=== PATIENT | male | born 2005 | race Caucasian/White ===

== ENCOUNTER 2024-04-06 15:02 | Emergency (ER) | payer SELFPAY ==
--- NOTE | ~2024-04-06 | CT_ITS ---
CLINICAL INDICATION: Hematuria COMPARISON: None. TECHNIQUE: Multiple contiguous axial images of the abdomen and pelvis were performed following the ad ministration of with 100 mL Omnipaque-350 intravenous contrast The dose-length product (DLP) was 325.00 mGy-cm. Automated exposure control and iterative reconstruction technique were employed. FINDINGS/OBSERVATIONS: Visualized lower thorax: The bilateral lung bases are clear. The heart is of normal size, without pericardial effusion. Small hiatal hernia is present. Liver: The liver enhances homogeneously and is not enlarged measuring 17 cm in longitudinal dimension Gallbladder and biliary system: The gallbladder is only minimally distended, and otherwise unremarkable. Pancreas: The pancreas enhances homogeneously without ductal dilatation. Spleen: The spleen enhances homogeneously and is not enlarged measuring 10 cm in longitudinal dimension. Kidneys: The bilateral kidneys enhance symmetrically without hydronephrosis or renal calculi. Adrenal glands: Unremarkable. Gastrointestinal tract: Trace fecal stasis. Appendix: The air-filled appendix is of normal caliber (axial series, images 87-105). Vasculature: Unremarkable. No aneurysmal dilatation or significant stenosis. Lymph nodes: No pathologically enlarged or morphologically suspicious lymph nodes within the retroperitoneum or at the root of the mesentery. Pelvic structures: The bladder is distended, with mildly thickened martinez and surrounding inflammatory change findings co nsistent with a cystitis. The prostate gland is not enlarged. Prominence of the seminal vesicles are identified, with surrounding inflammatory change, findings sug gesting seminal vesiculitis which clinical and serologic correlation is needed. Body wall and musculoskeletal: No significant degenerative disease within the lower thoracic or lumbosacral spine. IMPRESSION: Findings suggesting cystitis with associated seminal vesiculitis, as detailed above. No additional abnormalities are appreciated. Reviewed, dictated and finalized at location A[facility] IMPRESSION: Findings suggesting cystitis with associated seminal vesiculitis, as detailed a luana. No additional abnormalities are appreciated.
[2024-04-06 15:15] VITALS: BP 138/65; PULSE 95; RESP 16; TEMP 36.7; O2SAT 99
[2024-04-06 15:37] LABS: Add Urine Microscopic? YES; Appearance Urine Clear (Clear); Bacteria Urine None Seen /hpf; Bilirubin Urine Negative (Negative); Blood Urine 3+ (Negative); Color Urine Yellow (Yellow); Glucose Urine UA Negative (Negative); Ketones Urine Negative (Negative); Leukocyte Esterase Ur 2+ LEU/UL (Negative); Nitrate Urine Negative (Negative); Non Pathogenic Casts 0-2; Protein Urine Negative (Negative); Specific Grav Ur 1.004 (1.001-1.035); Squamous Epithelial Cell Urine None Seen /hpf (Few); Urobilinogen Urine 0.2 mg/dL (<2.0); WBC Urine 21-50 /hpf (0-3)
--- NOTE | 2024-04-06 16:27 | ED.MALEGU ---
HPI - Male Genitourinary General Chief complaint: Urogenital-Male <Jazmín Rueda APRN - Last Filed: 04/06/24 16:45> Stated complaint: blood in my urine <Jazmín Rueda APRN - Last Filed: 04/06/24 16:45> Time Seen by Provider: 04/06/24 16:20 <Jazmín Rueda APRN - Last Filed: 04/06/24 16:45> Focused HPI: Patient is a 19-year-old male presents to the ER with blood in his urine. He reports that he got up to use the restroom last night around 1:00 a.m. patient denies any abdominal discomfort or back pain. He endorses a slight stinging when he will urinates. Patient denies concerns for STDs. He has no pertinent medical history related to this ER visit and has no history urinary tract infections. GENERAL: Well-appearing, well-nourished, and in no acute distress. HEAD: Normocephalic, atraumatic. CHEST: Clear to auscultation. ?No respiratory distress. HEART: Regular rate and rhythm.? NEURO: ?Alert and oriented x3. Patient screened in triage and initial orders placed.? ?Additional care and disposition to be based upon?diagnostic testing and treatment. <Jazmín Rueda APRN - Last Filed: 04/06/24 16:45> Source: patient <Mauricio Wilson PA-C - Last Filed: 04/07/24 01:03> Mode of arrival: ambulatory <Mauricio Wilson PA-C - Last Filed: 04/07/24 01:03> Limitations: no limitations <LISA Bryant Last Filed: 04/07/24 01:03> History of Present Illness HPI Narrative: Agree with triage note above <LISA Bryant Last Filed: 04/07/24 01:03> Related Data Allergies/Adverse reactions: Allergies Allergy/AdvReac Type Severity Reaction Status Date / Time No Known Allergies Allergy Mild Verified 04/06/24 17:27 <Jazmín Rueda APRN - Last Filed: 04/06/24 16:45> Review of Systems Review of Systems: All systems as dictated in HPI <Mauricio Wilson PA-C - Last Filed: 04/07/24 01:03> Exam Narrative: GENERAL: Well-appearing, well-nourished, and in no acute distress. HEAD: Normocephalic, atraumatic. EYES: PERRLA and EOMI. ENT: Nares clear, no rhinorrhea or epistaxis. Mucous membranes moist. Oropharynx without tonsillar hypertrophy exudate or other lesions. NECK: Supple. No adenopathy or masses. CHEST: No respiratory distress. Clear to auscultation. No wheezes rales or rhonchi HEART: Regular rate and rhythm. No murmur heard. Normal peripheral pulses. ABDOMEN: Soft, nontender, nondistended, normal active bowel sounds. MSK: Normal range of motion. No edema. SKIN: Warm, dry, no rash. NEURO: Alert and oriented x4. No focal deficits. PSYCH: Normal mood and affect. <Mauricio Wilson PA-C - Last Filed: 04/07/24 01:03> Course Vital Signs Vital signs: Vital Signs Temperature 98.1 F 04/06/24 15:15 Pulse Rate 95 04/06/24 15:15 Respiratory Rate 16 04/06/24 15:15 Blood Pressure 138/65 04/06/24 15:15 Pulse Oximetry 99 04/06/24 15:15 Oxygen Delivery Room Air 04/06/24 15:15 Temperature 98.1 F 04/06/24 15:15 Pulse Rate 95 04/06/24 15:15 Respiratory Rate 16 04/06/24 15:15 Blood Pressure 138/65 04/06/24 15:15 Pulse Oximetry 99 04/06/24 15:15 Oxygen Delivery Room Air 04/06/24 15:15 <Jazmín Rueda, WINDOWS SYSTEMS ENGINEER - Last Filed: 04/06/24 16:45> Vital Signs Temperature 98.1 F 04/06/24 15:15 Pulse Rate 95 04/06/24 15:15 Respiratory Rate 16 04/06/24 15:15 Blood Pressure 138/65 04/06/24 15:15 Pulse Oximetry 99 04/06/24 15:15 Oxygen Delivery Room Air 04/06/24 15:15 Temperature 98.1 F 04/06/24 15:15 Pulse Rate 95 04/06/24 15:15 Respiratory Rate 16 04/06/24 15:15 Blood Pressure 138/65 04/06/24 15:15 Pulse Oximetry 99 04/06/24 15:15 Oxygen Delivery Room Air 04/06/24 15:15 <Mauricio Wilson PA-C - Last Filed: 04/07/24 01:03> MDM - Male Genitourinary MDM Narrative Medical decision making narrative: This is a 19-year-old male who presents to the ED for chief complaint of dysuria and hematuria. Vitals are normal.. Exam is benign overall. exam deferred. No abdominal pain or testicular pain or swelling reported. Lab work shows elevated white count 14.1. CMP shows elevated bilirubin. Urinalysis remarkable for 3+ blood, 2+ leuks, 11-20 RBCs, 21-50 wbc's. STD labs are negative. CT abdomen pelvis with IV contrast: IMPRESSION: Findings suggesting cystitis with associated seminal vesiculitis, as detailed above. No additional abnormalities are appreciated. Discussed the above findings with the patient. We will start on ciprofloxacin for urinary tract infection. Urology referral given as well. Patient will be discharged in stable condition. Supportive measures discussed and return precautions given. Patient is understanding and agreeable with plan for discharge with PCP follow-up. <Mauricio Wilson PA-C - Last Filed: 04/07/24 01:03> Lab Data Result diagrams: 04/06/24 17:26 04/06/24 17:26 <Jazmín Rueda APRN - Last Filed: 04/06/24 16:45> Labs: Lab Results 04/06/24 04/06/24 04/06/24 Range/Units 15:18 17:26 18:33 WBC 14.1 H (4.5-10.0) K/mm3 RBC 4.78 (4.6-6.20) M/mm3 Hgb 14.1 (14.0-18.0) g/dL Hct 42.0 (42.0-52.0) % MCV 87.9 (80-100) fl MCH 29.5 (26-34) pg MCHC 33.6 (32-36) g/dl RDW 12.2 (11.5-14.5) % Plt Count 282 (150-375) k/mm3 MPV 9.5 (7.4-10.4) fl Immature Gran % (Auto) 0.4 (0-0.5) % Neut % (Auto) 76.1 H (45.5-73.1) % Lymph % (Auto) 14.9 L (18.3-44.2) % Woodruff % (Auto) 7.9 (2.6-8.5) % Eos % (Auto) 0.4 (0-4.4) % Baso % (Auto) 0.3 (0.2-1.2) % Lymph # (Auto) 2.10 (0.9-3.2) K/mm3 Woodruff # (Auto) 1.1 H (0.1-0.6) K/mm3 Eos # (Auto) 0.1 (0-0.3) K/mm3 Baso # (Auto) 0.0 (0.0-0.1) K/mm3 Abs Immat Gran (auto) 0.06 H (0.00-0.031) K/mm3 Absolute Neuts (auto) 10.8 H (1.3-6.7) K/mm3 Absolute Nucleated RBC 0.000 (0.0-0.012) K/mm3 Nucleated RBC % 0.0 (0.0-0.2) % PT 13.8 (11.1-14.7) Seconds INR 1.0 APTT 33.5 (22.3-36.8) Seconds Sodium 140 (137-145) mmol/L Potassium 4.0 (3.4-5.0) mmol/L Chloride 101 (98-107) mmol/L Carbon Dioxide 29 (22-30) mmol/L Anion Gap 10 (4-12) mmol/L BUN 11 (9-20) mg/dL Creatinine 0.90 (0.7-1.3) mg/dL Estim Creat Clear Calc 129 ml/min Estimated GFR > 60 (59 - ) Glucose 95 (65-110) mg/dL Calcium 9.8 (8.4-10.2) mg/dL Total Bilirubin 2.3 H (0.2-1.3) mg/dL AST 25 (17-59) U/L ALT 10 (6-50) U/L Alkaline Phosphatase 77 (38-126) U/L Total Protein 9.0 H (6.3-8.2) g/dL Albumin 5.0 (3.5-5.1) g/dL Urine Color Yellow (Yellow) Urine Appearance Clear (Clear) Urine pH 6.0 (5.0-9.0) Ur Specific Holliday 1.004 (1.001-1.035) Urine Protein Negative (Negative) mg/dL Urine Glucose (UA) Negative (Negative) mg/dL Urine Ketones Negative (Negative) mg/dL Ur Blood (Man) 3+ H (Negative) Urine Nitrate Negative (Negative) Urine Bilirubin Negative (Negative) Urine Urobilinogen 0.2 (<2.0) mg/dL Leukocyte Esterase Rfl 2+ H (Negative) SIGIFREDO/UL Urine RBC 11-20 H (0-2) /hpf Urine WBC 21-50 H (0-3) /hpf Ur Squamous Epith Cells None seen (Few) /hpf Urine Bacteria None seen /hpf Urine Casts 0-2 C. trachomatis (PCR) Not detected (NOT DETECTE) N. gonorrhoeae (PCR) Not detected (NOT DETECTE) T. vaginalis (PCR) Not detected (NOT DETECTE) Blood Type O Positive Antibody Screen Negative <Jazmín Rueda, WINDOWS SYSTEMS ENGINEER - Last Filed: 04/06/24 16:45> Lab Results 04/06/24 04/06/24 04/06/24 Range/Units 15:18 17:26 18:33 WBC 14.1 H (4.5-10.0) K/mm3 RBC 4.78 (4.6-6.20) M/mm3 Hgb 14.1 (14.0-18.0) g/dL Hct 42.0 (42.0-52.0) % MCV 87.9 (80-100) fl MCH 29.5 (26-34) pg MCHC 33.6 (32-36) g/dl RDW 12.2 (11.5-14.5) % Plt Count 282 (150-375) k/mm3 MPV 9.5 (7.4-10.4) fl Immature Gran % (Auto) 0.4 (0-0.5) % Neut % (Auto) 76.1 H (45.5-73.1) % Lymph % (Auto) 14.9 L (18.3-44.2) % Woodruff % (Auto) 7.9 (2.6-8.5) % Eos % (Auto) 0.4 (0-4.4) % Baso % (Auto) 0.3 (0.2-1.2) % Lymph # (Auto) 2.10 (0.9-3.2) K/mm3 Woodruff # (Auto) 1.1 H (0.1-0.6) K/mm3 Eos # (Auto) 0.1 (0-0.3) K/mm3 Baso # (Auto) 0.0 (0.0-0.1) K/mm3 Abs Immat Gran (auto) 0.06 H (0.00-0.031) K/mm3 Absolute Neuts (auto) 10.8 H (1.3-6.7) K/mm3 Absolute Nucleated RBC 0.000 (0.0-0.012) K/mm3 Nucleated RBC % 0.0 (0.0-0.2) % PT 13.8 (11.1-14.7) Seconds INR 1.0 APTT 33.5 (22.3-36.8) Seconds Sodium 140 (137-145) mmol/L Potassium 4.0 (3.4-5.0) mmol/L Chloride 101 (98-107) mmol/L Carbon Dioxide 29 (22-30) mmol/L Anion Gap 10 (4-12) mmol/L BUN 11 (9-20) mg/dL Creatinine 0.90 (0.7-1.3) mg/dL Estim Creat Clear Calc 129 ml/min Estimated GFR > 60 (59 - ) Glucose 95 (65-110) mg/dL Calcium 9.8 (8.4-10.2) mg/dL Total Bilirubin 2.3 H (0.2-1.3) mg/dL AST 25 (17-59) U/L ALT 10 (6-50) U/L Alkaline Phosphatase 77 (38-126) U/L Total Protein 9.0 H (6.3-8.2) g/dL Albumin 5.0 (3.5-5.1) g/dL Urine Color Yellow (Yellow) Urine Appearance Clear (Clear) Urine pH 6.0 (5.0-9.0) Ur Specific Holliday 1.004 (1.001-1.035) Urine Protein Negative (Negative) mg/dL Urine Glucose (UA) Negative (Negative) mg/dL Urine Ketones Negative (Negative) mg/dL Ur Blood (Man) 3+ H (Negative) Urine Nitrate Negative (Negative) Urine Bilirubin Negative (Negative) Urine Urobilinogen 0.2 (<2.0) mg/dL Leukocyte Esterase Rfl 2+ H (Negative) SIGIFREDO/UL Urine RBC 11-20 H (0-2) /hpf Urine WBC 21-50 H (0-3) /hpf Ur Squamous Epith Cells None seen (Few) /hpf Urine Bacteria None seen /hpf Urine Casts 0-2 C. trachomatis (PCR) Not detected (NOT DETECTE) N. gonorrhoeae (PCR) Not detected (NOT DETECTE) T. vaginalis (PCR) Not detected (NOT DETECTE) Blood Type O Positive Antibody Screen Negative <Mauricio Wilson PA-C - Last Filed: 04/07/24 01:03> Discharge Plan Discharge Clinical Impression: Urinary tract infection <Jazmín Rueda APRN - Last Filed: 04/06/24 16:45> Patient Disposition: Home, Self-Care <Jazmín Rueda APRN - Last Filed: 04/06/24 16:45> Condition: Stable <Jazmín Rueda APRN - Last Filed: 04/06/24 16:45> Instructions: Antibiotic Form <Jazmín Rueda APRN - Last Filed: 04/06/24 16:45> Additional Instructions: Your exam and imaging today show inflammation and infection of the urinary tract. Please take antibiotics as prescribed. If you have any new or worsening symptoms please return to the ER for further evaluation. <Jazmín Rueda APRN - Last Filed: 04/06/24 16:45> Prescriptions: New ciprofloxacin HCl [Cipro] 500 mg tablet 500 mg PO Q12H Qty: 14 0RF <Jazmín Rueda APRN - Last Filed: 04/06/24 16:45> Follow-up/Referrals: Ethan Riley MD [Physician] - Aga Caceres MD [Physician] - <Jazmín Rueda APRN - Last Filed: 04/06/24 16:45> Time of Disposition: 19:10 <Jazmín Rueda APRN - Last Filed: 04/06/24 16:45> 19:10 <Mauricio Wilson PA-C - Last Filed: 04/07/24 01:03>
[2024-04-06 17:41] LABS: Basophils Percent Auto 0.3 % (0.2-1.2); Eosinophils Absolute Auto 0.1 K/mm3 (0-0.3); Eosinophils Percent Auto 0.4 % (0-4.4); Hemoglobin 14.1 g/dL (14.0-18.0); Immature Granulocyte Absolute 0.06 K/mm3 (0.00-0.031); Immature Granulocyte Percent A 0.4 % (0-0.5); Lymphocytes Percent Auto 14.9 % (18.3-44.2); Mean Corpuscular HGB Conc 33.6 g/dl (32-36); Mean Corpuscular Hemoglobin 29.5 pg (26-34); Mean Corpuscular Volume 87.9 fl (80-100); Mean Platelet Volume 9.5 fl (7.4-10.4); Monocytes Absolute Auto 1.1 K/mm3 (0.1-0.6); Monocytes Percent Auto 7.9 % (2.6-8.5); Neutrophils Absolute Auto 10.8 K/mm3 (1.3-6.7); Neutrophils Percent Auto 76.1 % (45.5-73.1); Platelet Count Result 282 k/mm3 (150-375); Red Blood Count 4.78 M/mm3 (4.6-6.20); Red Cell Distribution Width 12.2 % (11.5-14.5); White Blood Count 14.1 K/mm3 (4.5-10.0)
[2024-04-06 17:55] LABS: Alanine Aminotransferase 10 U/L (6-50); Alkaline Phosphatase 77 U/L (38-126); Anion Gap 10 mmol/L (4-12); Aspartate Amino Transferase 25 U/L (17-59); Bilirubin,Total 2.3 mg/dL (0.2-1.3); Blood Urea Nitrogen 11 mg/dL (9-20); Calcium 9.8 mg/dL (8.4-10.2); Carbon Dioxide 29 mmol/L (22-30); Chloride 101 mmol/L (98-107); Estimated CRCL calculation 129 ml/min; Estimated Glomerular Filt Rate > 60; Glucose 95 mg/dL (65-110); Sodium 140 mmol/L (137-145)
[2024-04-06 17:57] LABS: Prothrombin Time 13.8 Seconds (11.1-14.7)
[2024-04-06 17:59] LABS: Partial Thromboplastin Time 33.5 Seconds (22.3-36.8)
[2024-04-06 20:07] LABS: Chlamydia trachomatis NOT DETECTED (NOT DETECTE); Neisseria gonorrhoeae PCR NOT DETECTED (NOT DETECTE)
[2024-04-06 22:31] LABS: Trichomonas Vag PCR NOT DETECTED (NOT DETECTE)
== END 2024-04-06 19:38 | disposition home or self-care (01) ==
PROVIDERS: Registered Nurse; Emergency Provider Physician Assistant; PCP Internal Medicine
DX: N39.0 Urinary tract infection, site not specified (principal)
CPT/HCPCS: 36415; 74177; 80053; 81001; 85025; 85610; 85730; 86850; 86900; 86901; 87086; 87186; 87491; 87591; 87661; 99284; Q9967